=== PATIENT | male | born 1980 | race Caucasian/White ===

== ENCOUNTER 2021-04-23 04:06 | Inpatient (IN) | payer OTHER ==
[2021-04-23] MEDS ORDERED: ACETAMINOPHEN 1000 MG/100 ML VIAL (NON FORMULARY) IVPB ONE ×2 (05:12→10:57)
[2021-04-23] MEDS ORDERED: SODIUM CHLORIDE 1,000 ML IV STA ×2 (05:12→13:37)
[2021-04-23] MEDS ORDERED: ACETAMINOPHEN INJECTION 100 ML IVPB ONE ×2 (05:46→10:58)
[2021-04-23 06:49] LABS: BASO % 0.5 % (0-2.0); EOS % 0.3 % (0-4.5); HEMATOCRIT 46.8 % (35.4-49); HEMOGLOBIN 15.8 GM/dL (11.7-16.9); LYMPH % 6.9 % (8-40); MCH 30.1 pg (25.7-33.7); MCHC 33.9 g/dl (32.0-35.9); MEAN CELL VOLUME 88.9 fl (80-96); MEAN PLT VOLUME 9.5 fl (7.5-11.1); MONO % 6.2 % (3.8-10.2); NEUT % 86.1 % (42.8-82.8); PLATELET COUNT 270 K/MM3 (134-434); RBC 5.26 M/mm3 (4.00-5.60); RDW 14.4 % (11.9-15.9); WHITE BLOOD COUNT 12.9 K/mm3 (4.0-10.0)
[2021-04-23 06:55] LABS: INR 1.06 (0.83-1.09)
[2021-04-23 06:57] LABS: ACTIVATED PTT 31.8 SECONDS (25.2-36.5)
[2021-04-23 07:07] LABS: CALCIUM 8.5 mg/dL (8.5-10.1)
[2021-04-23 07:08] LABS: ALBUMIN 4.1 g/dl (3.4-5.0); BLOOD UREA NITROGEN 10.8 mg/dL (7-18)
[2021-04-23 07:11] LABS: CREATININE 0.8 mg/dL (0.55-1.3)
[2021-04-23 07:13] LABS: BILIRUBIN,TOTAL 0.8 mg/dL (0.2-1)
[2021-04-23] MEDS ORDERED: morphine CARPU-JECT 2 MG/1 ML DISP.SYRIN IVPUSH ONE (09:26)
[2021-04-23] MEDS ORDERED: MORPHINE SULFATE 2 MG/ML VIAL ONE (09:28)
[2021-04-23] MEDS ORDERED: PIPERACILLIN/TAZOB 3.375 GM 3.375 GM in DEXTROSE 5%-WATER - 50 ML IVPB ONE (11:36)
[2021-04-23] MEDS ORDERED: PIPERACILLIN/TAZOB 3.375 GM 3.375 GM/50 ML BAG IVPB ONE (11:57)
[2021-04-23] MEDS ORDERED: MORPHINE SULFATE 2 MG/ML VIAL IVPUSH PRN ×2 (12:42)
[2021-04-23] MEDS ORDERED: ONDANSETRON 4 MG/2 ML VIAL IVPUSH PRN ×4 (12:42→16:33)
[2021-04-23] MEDS ORDERED: SODIUM CHLORIDE 1,000 ML IV SCH ×2 (12:45→16:33)
[2021-04-23] MEDS ORDERED: PIPERACILLIN/TAZOB 3.375 GM 3.375 GM in DEXTROSE 5%-WATER - 50 ML IVPB SCH ×2 (13:15→18:00)
[2021-04-23] MEDS ORDERED: MIDAZOLAM HCL 2 MG/2 ML SINGLE DOSE VIAL ONE (14:20)
[2021-04-23] MEDS ORDERED: PROPOFOL 20 ML ONE ×2 (14:21→15:54)
[2021-04-23] MEDS ORDERED: ROCURONIUM BROMIDE 50 MG/5 ML SYRINGE ONE (15:20)
[2021-04-23] MEDS ORDERED: LACTATED RINGERS SOLUTION 1,000 ML IV SCH (15:45)
[2021-04-23] MEDS ORDERED: PROMETHAZINE HCL 25 MG/1 ML VIAL IVPUSH PRN ×2 (15:45→16:33)
[2021-04-23] MEDS ORDERED: GLYCOPYRROLATE 0.2 MG/1 ML VIAL ONE (15:51)
[2021-04-23] MEDS ORDERED: NEOSTIGMINE METHYLSULFATE 0.5 MG/ML - 10 ML MDV ONE (15:51)
[2021-04-23] MEDS ORDERED: KETOROLAC TROMETHAMINE 30 MG/1 ML VIAL ONE (15:52)
[2021-04-23] MEDS ORDERED: BUPIVACAINE HCL/PF 0.25% (2.5MG/ML) 10 ML VIAL ONE (15:53)
[2021-04-23] MEDS ORDERED: oxyCODONE HCL 5 MG TABLET PO PRN (16:26)
[2021-04-23] MEDS: LACTATED RINGERS SOLUTION 1,000 ML IV SCH (18:07)
[2021-04-23 18:55] VITALS: BMI 28.9
[2021-04-23] MEDS: DOCUSATE SODIUM 100 MG CAPSULE (FP) PO SCH (21:07)
[2021-04-23] MEDS: ACETAMINOPHEN 325 MG TABLET (FP) PO PRN (21:41)
[2021-04-24] MEDS: LACTATED RINGERS SOLUTION 1,000 ML IV SCH ×2 (01:29→09:57)
[2021-04-24] MEDS ORDERED: ACETAMINOPHEN 1000 MG/100 ML VIAL (NON FORMULARY) IVPB ONE (01:30)
[2021-04-24] MEDS: oxyCODONE HCL 5 MG TABLET PO PRN ×2 (07:05→16:42)
[2021-04-24] MEDS ORDERED: SODIUM CHLORIDE 500 ML IV STA ×2 (08:22→08:25)
[2021-04-24 09:50] LABS: HEMATOCRIT 35.7 % (35.4-49); HEMOGLOBIN 12.3 GM/dL (11.7-16.9); MCH 30.2 pg (25.7-33.7); MCHC 34.3 g/dl (32.0-35.9); MEAN CELL VOLUME 87.9 fl (80-96); MEAN PLT VOLUME 8.9 fl (7.5-11.1); PLATELET COUNT 222 K/MM3 (134-434); RBC 4.06 M/mm3 (4.00-5.60); RDW 13.5 % (11.9-15.9); WHITE BLOOD COUNT 8.7 K/mm3 (4.0-10.0)
[2021-04-24] MEDS ORDERED: PIPERACILLIN/TAZOBACTAM 3.375 GM VIAL IVPB ONE ×2 (09:52→17:26)
[2021-04-24] MEDS ORDERED: DEXTROSE 5%-WATER - 50 ML IVPB ONE ×2 (09:53→17:26)
[2021-04-24] MEDS: PIPERACILLIN/TAZOB 3.375 GM 3.375 GM in DEXTROSE 5%-WATER - 50 ML IVPB SCH ×2 (09:57→18:15)
[2021-04-24] MEDS: DOCUSATE SODIUM 100 MG CAPSULE (FP) PO SCH ×2 (09:57→21:41)
[2021-04-24 10:17] LABS: CALCIUM 7.8 mg/dL (8.5-10.1)
[2021-04-24 10:18] LABS: BLOOD UREA NITROGEN 8.7 mg/dL (7-18); MAGNESIUM 2.1 mg/dL (1.8-2.4)
[2021-04-24 10:20] LABS: PHOSPHOROUS 2.4 mg/dL (2.5-4.9)
[2021-04-24 10:21] LABS: CREATININE 0.7 mg/dL (0.55-1.3)
[2021-04-24 10:22] LABS: BILIRUBIN,TOTAL 0.9 mg/dL (0.2-1); TOT PROT 6.1 g/dl (6.4-8.2)
[2021-04-24 10:24] LABS: ALBUMIN 2.8 g/dl (3.4-5.0)
[2021-04-24] MEDS: SODIUM CHLORIDE 1,000 ML IV SCH ×2 (10:27→16:39)
[2021-04-25] MEDS: SODIUM CHLORIDE 1,000 ML IV SCH ×2 (02:00→11:15)
[2021-04-25] MEDS ORDERED: PIPERACILLIN/TAZOBACTAM 3.375 GM VIAL IVPB ONE ×3 (02:29→17:26)
[2021-04-25] MEDS ORDERED: DEXTROSE 5%-WATER - 50 ML IVPB ONE ×3 (02:29→17:27)
[2021-04-25] MEDS: PIPERACILLIN/TAZOB 3.375 GM 3.375 GM in DEXTROSE 5%-WATER - 50 ML IVPB SCH ×3 (02:40→17:48)
[2021-04-25] MEDS: ACETAMINOPHEN 325 MG TABLET (FP) PO PRN (05:42)
[2021-04-25 09:06] LABS: BASO % 0.8 % (0-2.0); EOS % 1.7 % (0-4.5); HEMATOCRIT 33.3 % (35.4-49); HEMOGLOBIN 11.2 GM/dL (11.7-16.9); LYMPH % 17.2 % (8-40); MCH 29.8 pg (25.7-33.7); MCHC 33.7 g/dl (32.0-35.9); MEAN CELL VOLUME 88.3 fl (80-96); MEAN PLT VOLUME 8.5 fl (7.5-11.1); MONO % 7.9 % (3.8-10.2); NEUT % 72.4 % (42.8-82.8); PLATELET COUNT 228 K/MM3 (134-434); RBC 3.77 M/mm3 (4.00-5.60); RDW 13.3 % (11.9-15.9)
[2021-04-25] MEDS: DOCUSATE SODIUM 100 MG CAPSULE (FP) PO SCH ×2 (09:44→21:58)
[2021-04-25] MEDS: oxyCODONE HCL 5 MG TABLET PO PRN ×2 (09:47→16:18)
[2021-04-26] MEDS ORDERED: PIPERACILLIN/TAZOBACTAM 3.375 GM VIAL IVPB ONE ×3 (01:54→17:57)
[2021-04-26] MEDS ORDERED: DEXTROSE 5%-WATER - 50 ML IVPB ONE ×3 (01:54→17:57)
[2021-04-26] MEDS: PIPERACILLIN/TAZOB 3.375 GM 3.375 GM in DEXTROSE 5%-WATER - 50 ML IVPB SCH ×3 (02:03→18:01)
[2021-04-26 09:04] LABS: BASO % 0.6 % (0-2.0); EOS % 2.5 % (0-4.5); HEMATOCRIT 37.1 % (35.4-49); HEMOGLOBIN 12.8 GM/dL (11.7-16.9); LYMPH % 14.8 % (8-40); MCHC 34.4 g/dl (32.0-35.9); MEAN CELL VOLUME 87.1 fl (80-96); MEAN PLT VOLUME 8.5 fl (7.5-11.1); MONO % 8.4 % (3.8-10.2); NEUT % 73.7 % (42.8-82.8); PLATELET COUNT 321 K/MM3 (134-434); RBC 4.26 M/mm3 (4.00-5.60); WHITE BLOOD COUNT 6.3 K/mm3 (4.0-10.0)
[2021-04-26 09:31] LABS: CALCIUM 8.4 mg/dL (8.5-10.1); MAGNESIUM 2.3 mg/dL (1.8-2.4)
[2021-04-26 09:34] LABS: CREATININE 0.7 mg/dL (0.55-1.3); PHOSPHOROUS 2.1 mg/dL (2.5-4.9)
[2021-04-26 09:35] LABS: BILIRUBIN,TOTAL 0.6 mg/dL (0.2-1)
[2021-04-26 09:36] LABS: TOT PROT 6.9 g/dl (6.4-8.2)
[2021-04-26] MEDS ORDERED: NAPH,MB-DB/K PH,MBDB POWDER PACKET PO ONE (10:15)
[2021-04-26] MEDS: ENOXAPARIN NA (PORCINE) 40 MG/0.4 ML DISP.SYRIN SQ SCH (11:00)
[2021-04-26] MEDS: DOCUSATE SODIUM 100 MG CAPSULE (FP) PO SCH ×2 (11:00→21:27)
[2021-04-27] MEDS ORDERED: DEXTROSE 5%-WATER - 50 ML IVPB ONE ×2 (03:06→08:53)
[2021-04-27] MEDS ORDERED: PIPERACILLIN/TAZOBACTAM 3.375 GM VIAL IVPB ONE ×2 (03:06→08:53)
[2021-04-27] MEDS: PIPERACILLIN/TAZOB 3.375 GM 3.375 GM in DEXTROSE 5%-WATER - 50 ML IVPB SCH ×2 (03:07→09:01)
[2021-04-27 08:30] VITALS: PULSE 71
[2021-04-27] MEDS: ENOXAPARIN NA (PORCINE) 40 MG/0.4 ML DISP.SYRIN SQ SCH (09:01)
[2021-04-27] MEDS: DOCUSATE SODIUM 100 MG CAPSULE (FP) PO SCH (09:01)
[2021-04-27 09:54] LABS: EOS % 7.6 % (0-4.5); HEMATOCRIT 42.2 % (35.4-49); HEMOGLOBIN 14.1 GM/dL (11.7-16.9); LYMPH % 20.2 % (8-40); MCH 29.3 pg (25.7-33.7); MCHC 33.4 g/dl (32.0-35.9); MEAN CELL VOLUME 87.6 fl (80-96); MEAN PLT VOLUME 8.1 fl (7.5-11.1); NEUT % 62.2 % (42.8-82.8); PLATELET COUNT 391 K/MM3 (134-434); RBC 4.82 M/mm3 (4.00-5.60); RDW 13.4 % (11.9-15.9); WHITE BLOOD COUNT 4.4 K/mm3 (4.0-10.0)
[2021-04-27 10:28] LABS: CALCIUM 9.1 mg/dL (8.5-10.1)
[2021-04-27 10:29] LABS: ALBUMIN 3.2 g/dl (3.4-5.0); BLOOD UREA NITROGEN 7.7 mg/dL (7-18); MAGNESIUM 2.5 mg/dL (1.8-2.4)
[2021-04-27 10:32] LABS: CREATININE 0.8 mg/dL (0.55-1.3)
[2021-04-27 10:33] LABS: BILIRUBIN,TOTAL 0.5 mg/dL (0.2-1); TOT PROT 7.5 g/dl (6.4-8.2)
[2021-04-27 15:50] VITALS: BP 129/79; TEMP 99.1
== END 2021-04-27 16:39 | disposition home or self-care (01) | DRG 225 ==
LOC: JER 04:06 → JERBED 11:51 → J6S 17:39
PROVIDERS: ATTEND Internal Medicine
PROC: 0DTJ4ZZ Resection of Appendix, Percutaneous Endoscopic Approach (ICD-10-PCS; principal; 2021-04-23 14:00)
DX: K35.890 Other acute appendicitis without perforation or gangrene (principal); R00.0 Tachycardia, unspecified; J98.11 Atelectasis; R50.82 Postprocedural fever
CPT/HCPCS: 36415; 71045-TC-FY; 71046-TC-FY; 74177-TC; 80053; 83735; 84100; 85025; 85027; 85610; 85730; 86850; 86900; 86901; 88304-TC; 93005; 93010; 94010; 94760; 99285-25; C9803; J0131; Q9967; U0003; U0005

== ENCOUNTER 2022-02-02 05:39 | Emergency (ER) | payer OTHER ==
[2022-02-02 05:57] VITALS: BMI 29.7
[2022-02-02] MEDS ORDERED: methylPREDNISolone NA SUCC 125 MG/2 ML VIAL IVPB ONE (06:19)
[2022-02-02] MEDS ORDERED: methylPREDNISolone NA SUCC 125 MG/2 ML VIAL ONE (06:27)
[2022-02-02] MEDS: ALBUTEROL SO4 2.5/IPRATROPIUM 0.5 INH SOL 3 ML VIAL.NEB. NEB SCH (06:50)
[2022-02-02 07:04] LABS: BASO % 1.1 % (0-2.0); EOS % 13.4 % (0-4.5); HEMATOCRIT 43.2 % (35.4-49); HEMOGLOBIN 15.2 GM/dL (11.7-16.9); LYMPH % 21.6 % (8-40); MCH 30.4 pg (25.7-33.7); MCHC 35.2 g/dl (32.0-35.9); MEAN CELL VOLUME 86.2 fl (80-96); MEAN PLT VOLUME 8.4 fl (7.5-11.1); MONO % 7.4 % (3.8-10.2); NEUT % 56.5 % (42.8-82.8); PLATELET COUNT 261 10^3/uL (134-434); RDW 13.9 % (11.9-15.9); WHITE BLOOD COUNT 4.5 K/mm3 (4.0-10.0)
[2022-02-02 07:25] LABS: CALCIUM 8.6 mg/dL (8.5-10.1)
[2022-02-02 07:26] LABS: ALBUMIN 4.2 g/dl (3.4-5.0); BLOOD UREA NITROGEN 12.6 mg/dL (7-18)
[2022-02-02 07:28] LABS: CREATININE 0.9 mg/dL (0.55-1.3)
[2022-02-02 07:30] LABS: BILIRUBIN,TOTAL 0.5 mg/dL (0.2-1); TOT PROT 7.5 g/dl (6.4-8.2)
[2022-02-02 08:02] VITALS: BP 127/82; PULSE 80; TEMP 98.4
== END 2022-02-02 08:01 | disposition home or self-care (01) ==
LOC: JER 05:39
PROC: 3E0F7GC Introduction of Other Therapeutic Substance into Respiratory Tract, Via Natural or Artificial Opening (ICD-10-PCS; principal; 2022-02-02)
PROC: 3E033GC Introduction of Other Therapeutic Substance into Peripheral Vein, Percutaneous Approach (ICD-10-PCS; 2022-02-02)
DX: R06.2 Wheezing (principal)
CPT/HCPCS: 36415; 71046-TC-FY; 80053; 83880; 85025; 87804; 93005; 93010; 99285-25

== ENCOUNTER 2022-02-08 03:19 | Emergency (ER) | payer OTHER ==
[2022-02-08 03:50] VITALS: BP 132/94; PULSE 84; TEMP 97.9; BMI 29.7
[2022-02-08] MEDS ORDERED: ALBUTEROL SO4 2.5/IPRATROPIUM 0.5 INH SOL 3 ML VIAL.NEB. NEB ONE ×2 (03:56→04:06)
[2022-02-08] MEDS ORDERED: predniSONE 20 MG TABLET (UD) PO ONE (03:56)
[2022-02-08] MEDS ORDERED: AZITHROMYCIN 500 MG TABLET PO ONE (04:00)
[2022-02-08] MEDS ORDERED: predniSONE 20 MG TABLET (UD) ONE (04:05)
[2022-02-08] MEDS ORDERED: AZITHROMYCIN 250 MG TABLET ONE (04:06)
== END 2022-02-08 05:27 | disposition home or self-care (01) ==
LOC: JER 03:19
PROC: 3E0F7GC Introduction of Other Therapeutic Substance into Respiratory Tract, Via Natural or Artificial Opening (ICD-10-PCS; principal; 2022-02-08)
DX: J45.901 Unspecified asthma with (acute) exacerbation (principal)
CPT/HCPCS: 71046-TC-FY; 93005; 93010; 99284-25

== ENCOUNTER 2022-02-13 08:32 | Emergency (ER) | payer OTHER ==
[2022-02-13 09:05] VITALS: BP 139/85; TEMP 97.7; BMI 29.7
[2022-02-13] MEDS ORDERED: DEXAMETHASONE LIQUID 0.5 MG/5 ML PO ONE (09:28)
[2022-02-13] MEDS ORDERED: DEXAMETHASONE SOD PHOSPHATE 4 MG/1 ML VIAL ONE ×2 (09:35→10:40)
[2022-02-13] MEDS ORDERED: DEXAMETHASONE SOD PHOSPHATE 4 MG/1 ML VIAL IVPUSH ONE (10:38)
[2022-02-13 11:11] LABS: BASO % 1.3 % (0-2.0); EOS % 2.9 % (0-4.5); HEMOGLOBIN 14.6 GM/dL (11.7-16.9); LYMPH % 29.8 % (8-40); MCH 29.6 pg (25.7-33.7); MEAN CELL VOLUME 87.1 fl (80-96); MEAN PLT VOLUME 8.5 fl (7.5-11.1); MONO % 8.2 % (3.8-10.2); NEUT % 57.8 % (42.8-82.8); PLATELET COUNT 295 10^3/uL (134-434); RBC 4.95 M/mm3 (4.00-5.60); RDW 14.1 % (11.9-15.9); WHITE BLOOD COUNT 6.1 K/mm3 (4.0-10.0)
[2022-02-13 11:33] LABS: CALCIUM 8.7 mg/dL (8.5-10.1)
[2022-02-13 11:34] LABS: ALBUMIN 3.9 g/dl (3.4-5.0); BLOOD UREA NITROGEN 13.9 mg/dL (7-18)
[2022-02-13 11:37] LABS: CREATININE 0.8 mg/dL (0.55-1.3)
[2022-02-13 11:38] LABS: BILIRUBIN,TOTAL 0.3 mg/dL (0.2-1); TOT PROT 7.3 g/dl (6.4-8.2)
[2022-02-13 12:05] LABS: ANISOCYTOSIS 0; HELMET CELLS 0; HOWELL-JOLLY BODIES 0; MACROCYTOSIS 0; OVALOCYTE 0; ROULEAU 0; SICKELED CELLS 0; TARGET CELLS 0; TEAR DROP CELLS 0; TOXIC GRANULATION 0
[2022-02-13 14:00] VITALS: PULSE 89
[2022-02-13] MEDS ORDERED: RACEPINEPHRINE IH SOL 2.25% 11.25 MG/0.5 ML VIAL IH ONE (14:10)
[2022-02-13] MEDS ORDERED: RACEPINEPHRINE IH SOL 2.25% 11.25 MG/0.5 ML VIAL NEB ONE (14:23)
[2022-02-13 14:28] LABS: THROAT:GRP A STREP NOT DETECTED (NOTDETECTED)
[2022-02-14 15:07] LABS: SARS-CoV-2 NAA Not Detected (Not Detected)
== END 2022-02-13 18:15 | disposition short-term general hospital (02) ==
LOC: JERFT 08:32 → JER 08:32 → JERFT 18:15
PROC: 3E0333Z Introduction of Anti-inflammatory into Peripheral Vein, Percutaneous Approach (ICD-10-PCS; principal; 2022-02-13)
PROC: 3E033GC Introduction of Other Therapeutic Substance into Peripheral Vein, Percutaneous Approach (ICD-10-PCS; 2022-02-13)
DX: F45.8 Other somatoform disorders (principal)
CPT/HCPCS: 36415; 70360-TC-FY; 70491-TC; 80053; 85025; 87651; 99285-25; C9803-CS; Q9967; U0003; U0005

== ENCOUNTER 2024-05-30 08:05 | Emergency (ER) | payer OTHER ==
[2024-05-30 08:18] VITALS: BMI 27.3
[2024-05-30] MEDS: LACTATED RINGERS SOLUTION 1000 ML INFUS.BAG IV ONE (09:09)
[2024-05-30 09:40] LABS: BASO % 1.3 % (0-2.0); EOS % 4.3 % (0-4.5); HEMATOCRIT 43.5 % (35.4-49); HEMOGLOBIN 14.9 GM/dL (11.7-16.9); LYMPH % 27.8 % (8-40); MCH 29.3 pg (25.7-33.7); MCHC 34.2 g/dl (32.0-35.9); MEAN CELL VOLUME 85.8 fl (80-96); MEAN PLT VOLUME 9.5 fl (7.5-11.1); MONO % 5.3 % (3.8-10.2); NEUT % 61.3 % (42.8-82.8); PLATELET COUNT 244 10^3/uL (134-434); RBC 5.07 M/mm3 (4.00-5.60); RDW 13.4 % (11.9-15.9); WHITE BLOOD COUNT 3.7 K/mm3 (4.0-10.0)
[2024-05-30 09:45] LABS: URINE APPEARANCE CLEAR; URINE BILIRUBIN NEGATIVE (NEGATIVE); URINE COLOR YELLOW; URINE GLUCOSE (UA) 3+ (NEGATIVE); URINE KETONE 3+ (NEGATIVE); URINE LEUK ESTERASE NEGATIVE (NEGATIVE); URINE NITRITE NEGATIVE (NEGATIVE); URINE PROTEIN NEGATIVE (NEGATIVE)
[2024-05-30 09:57] LABS: POTASSIUM 3.9 mmol/L (3.5-5.1)
[2024-05-30 10:00] LABS: BLOOD UREA NITROGEN 14.5 mg/dL (7-18); CALCIUM 8.9 mg/dL (8.5-10.1); MAGNESIUM 2.2 mg/dL (1.8-2.4)
[2024-05-30 10:01] LABS: ALBUMIN 4.1 g/dl (3.4-5.0)
[2024-05-30 10:03] LABS: PHOSPHOROUS 2.4 mg/dL (2.5-4.9)
[2024-05-30 10:04] LABS: CREATININE 0.8 mg/dL (0.55-1.3)
[2024-05-30 10:05] LABS: BILIRUBIN,TOTAL 0.7 mg/dL (0.2-1); TOT PROT 7.6 g/dl (6.4-8.2)
[2024-05-30 11:16] VITALS: BP 121/84; PULSE 85; RESP 17; TEMP 98
== END 2024-05-30 11:23 | disposition home or self-care (01) ==
LOC: JER 08:05
DX: R53.1 Weakness (principal); H53.8 Other visual disturbances; E11.9 Type 2 diabetes mellitus without complications
CPT/HCPCS: 36415; 80053; 81003; 82962; 83036; 83735; 84100; 85025; 93005; 93010; 99284-25